=== PATIENT | female | born 1950 | race Caucasian/White ===

== ENCOUNTER 2022-03-11 14:14 | Emergency (ER) | payer SELFPAY ==
[~2022-03-11] VITALS: Ht 162.6 cm; Wt 104.3 kg
[2022-03-11 15:30] VITALS: BP 165/71
[2022-03-11] MEDS ORDERED: ACET-1080 PO (15:57)
[2022-03-11] MEDS ORDERED: AMOX500T86 PO (15:57)
[2022-03-11] MEDS: LIDOCAINE 1% HCL (LOCAL ANESTH.) INJ 20ML MDV ID ONE ×2 (16:02→16:06)
[2022-03-11] MEDS ORDERED: LIDOCAINE 1% HCL (LOCAL ANESTH.) INJ 20ML MDV IJ ONE (16:15)
== END 2022-03-11 16:07 | disposition home or self-care (01) ==
LOC: ER 14:14
DX: S01.511A Laceration without foreign body of lip, initial encounter (principal); W54.0XXA Bitten by dog, initial encounter; Y93.89 Activity, other specified; Y92.9 Unspecified place or not applicable; Y99.8 Other external cause status
CPT/HCPCS: 12013